=== PATIENT | female | born 1940 | race Caucasian/White ===

== ENCOUNTER 2016-11-07 11:45 | Outpatient (CLI) | payer OTHER ==
[~2016-11-07 11:45] MED LIST: FOSAMAX70 MG PO; GLUCOTROL10 MG PO; IRON325 M2 PO; JANUVIA50 MG PO; LACTULOSE10 GM/152 PO; LIDOCAINE TP; NEURONTIN300 MG PO; NORCO 5/325 MG1 TAB PO; PATADAY 2.5 ML2.5 ML OP; PROTONIX40 MG PO; REGLAN10 MG PO; XALATAN 0.005%2.5 ML OP; XANAX0.25 M1 PO; ZANTAC150 MG PO; ZESTRIL5 MG PO
== END 2016-11-07 20:20 | disposition home or self-care (01) ==
LOC: MRD 11:45
PROVIDERS: ATTEND Family Medicine
PROC: B54CZZZ Ultrasonography of Left Lower Extremity Veins (ICD-10-PCS; principal; 2016-11-07)
DX: M79.662 Pain in left lower leg (principal)
CPT/HCPCS: 93971; Q0092